=== PATIENT | male | born 1980 | race Caucasian/White ===

== ENCOUNTER 2018-04-04 12:13 | Emergency (ER) | payer SELFPAY ==
[2018-04-04] MEDS ORDERED: SODIUM CHLORIDE 0.9% 1000 ML INFUS.BAG IV ONE (12:17)
[2018-04-04] MEDS ORDERED: MECLIZINE HCL 25 MG TABLET (FP) PO ONE (12:17)
[2018-04-04 12:18] VITALS: TEMP 98.4; BMI 34.1
[2018-04-04] MEDS ORDERED: ONDANSETRON 4 MG/2 ML VIAL IVPUSH ONE (12:18)
--- NOTE | 2018-04-04 12:29 | PDOC ---
History of Present Illness - General Chief Complaint: Lightheaded Stated Complaint: DIZZINESS Time Seen by Provider: 04/04/18 12:24 History Source: Patient Exam Limitations: No Limitations - History of Present Illness Initial Comments: 04/04/18 12:25 37-year-old male no past medical history here today complaining of 10 days of dizziness and vertigo like symptoms. Patient states prior to the new year he had symptoms of a cold cough and nasal congestion. Denies any prior history of vertigo. Over the last 10 days he has had intermittent episodes of spinning sensation usually worse with turning corners or rolling over in bed. Symptoms do resolve today he had recurrent symptoms on awakening from sleep he did have associated nausea and vomiting 1. Denies fevers chills no chest pain no abdominal pain no focal weakness or changes to vision or speech. Denies any tinnitus or diarrhea Past History - Past Medical History Allergies/Adverse Reactions: Allergies Allergy/AdvReac Type Severity Reaction Status Date / Time No Known Allergies Allergy Verified 04/04/18 12:14 Home Medications: Ambulatory Orders Diazepam [Valium] 2 mg PO TID PRN #15 tablet MDD 3 04/04/18 Meclizine HCl 25 mg PO Q8H PRN #20 tablet 04/04/18 Ondansetron [Ondansetron Odt] 8 mg PO TID PRN #20 tab.rapdis 04/04/18 COPD: No Other medical history: Pt denies - Immunization History Immunization Up to Date: No - Suicide/Smoking/Psychosocial Hx Smoking History: Never smoked Have you smoked in the past 12 months: No Information on smoking cessation initiated: No Hx Alcohol Use: No Drug/Substance Use Hx: No Review of Systems - Review of Systems Constitutional: No: Chills, Fever, Weakness HEENTM: No: Blurred Vision, Hearing Loss, Difficulty Swallowing Respiratory: Yes: Cough. No: Orthopnea, Shortness of Breath Cardiac (ROS): No: Chest Pain ABD/GI: Yes: Nausea, Vomiting : No: Burning, Dysuria Neurological: Yes: Dizziness All Other Systems: Reviewed and Negative *Physical Exam - Vital Signs Last Vital Signs Temp Pulse Resp BP Pulse Ox 98.4 F 72 18 127/83 98 04/04/18 12:15 04/04/18 12:15 04/04/18 12:15 04/04/18 12:15 04/04/18 12:15 - Physical Exam Comments: 04/04/18 12:26 Patient is awake alert no acute distress head is atraumatic lungs are clear bilaterally heart is regular without any murmurs rubs or gallops abdomen is soft nontender neurologically the patient has 5 out of 5 all 4 extremities strength cranial nerves II through XII are intact cerebellar exam: Finger to nose is normal gait is steady normal Romberg is negative alternating hand movements is normal [id number] normal positive [place] to the left horizontal nystagmus skin is warm and dry no rash Moderate Sedation - Procedure Monitoring Vital Signs: Procedure Monitoring Vital Signs Temperature 98.4 F 04/04/18 12:15 Pulse Rate 72 04/04/18 12:15 Respiratory Rate 18 04/04/18 12:15 Blood Pressure 127/83 04/04/18 12:15 O2 Sat by Pulse Oximetry (%) 98 04/04/18 12:15 ED Treatment Course - LABORATORY CBC & Chemistry Diagram: 04/04/18 12:30 04/04/18 12:30 - RADIOLOGY Radiology Studies Ordered: Category Date Time Status CHEST PA & LAT [RAD] Stat Radiology 04/04/18 12:18 Ordered Medical Decision Making - Medical Decision Making 04/04/18 12:28 Differential diagnosis likely benign positional vertigo due to patient's persistent cough pneumonia or other infection is considered, lecture that abnormality, anemia, dehydration. Plan CBC CMP chest x-ray IV hydration meclizine and Zofran for his vertigo reassess patient has a normal cerebellar exam at this point neuro imaging is not necessary 04/04/18 15:12 pt labs normal. feels better after valium, ct head obtained due to length of sxs negative. will give outpt referral for nuerology and ENT. *DC/Admit/Observation/Transfer Diagnosis at time of Disposition: Vertigo - Discharge Dispostion Disposition: HOME Condition at time of disposition: Improved Decision to Admit order: No - Prescriptions Prescriptions: Diazepam [Valium] 2 mg PO TID PRN #15 tablet MDD 3 PRN Reason: Vertigo Meclizine HCl 25 mg PO Q8H PRN #20 tablet PRN Reason: Vertigo Ondansetron [Ondansetron Odt] 8 mg PO TID PRN #20 tab.rapdis PRN Reason: Nausea - Referrals Referrals: Mayur De La Rosa MD [Staff Physician] - Checo Thakur MD [Staff Physician] - - Patient Instructions Printed Discharge Instructions: Benign Paroxysmal Positional Vertigo Additional Instructions: you can take meclizine 25 mg every 8 hrs as needed for vertigo or dizziness. you can also take valium 2 mg every 8 hrs as needed for vertigo or dizziness. do not mix with alcohol or drive after taking medication as it can make you drowsy. you should follow up with [facility] De La Rosa. call to schedule see referral information for phone number. you can also follow up with dr Noreen thakur, nuerologist see referral information call to schedule. - Post Discharge Activity
[2018-04-04] MEDS ORDERED: ONDANSETRON 4 MG/2 ML VIAL ONE (12:33)
[2018-04-04] MEDS ORDERED: MECLIZINE HCL 25 MG TABLET (FP) ONE (12:33)
[2018-04-04 12:38] LABS: EOS % 0.9 % (0-4.5); HEMATOCRIT 46.4 % (35.4-49); HEMOGLOBIN 15.2 GM/dl (11.7-16.9); LYMPH % 30.1 % (8-40); MCH 29.1 pg (25.7-33.7); MCHC 32.8 g/dl (32.0-35.9); MEAN CELL VOLUME 88.8 fl (80-96); MEAN PLT VOLUME 7.5 fl (7.5-11.1); MONO % 5.4 % (3.8-10.2); NEUT % 62.6 % (42.8-82.8); PLATELET COUNT 350 K/MM3 (134-434); RBC 5.23 M/mm3 (4.00-5.60); RDW 13.7 % (11.9-15.9); WHITE BLOOD COUNT 7.2 K/mm3 (4.0-10.8)
[2018-04-04 12:55] LABS: ALBUMIN 4.1 g/dl (3.5-5.0); ALK PHOS 129 U/L (32-92); ANION GAP 7 MMOL/L (8-16); BILIRUBIN,TOTAL 0.6 mg/dl (0.2-1.0); BLOOD UREA NITROGEN 19 mg/dl (7-18); CALCIUM 9.1 mg/dl (8.4-10.2); CHLORIDE 103 mmol/L (98-107); CO2 26 mmol/L (22-28); CREATININE 0.9 mg/dl (0.6-1.3); GLUCOSE,RANDOM 113 mg/dl (74-106); POTASSIUM 4.1 mmol/L (3.5-5.1); SGOT/AST 28 U/L (10-42); SGPT/ALT 61 U/L (10-40); SODIUM 136 mmol/L (136-145); TOT PROT 7.3 g/dl (6.4-8.3)
[2018-04-04] MEDS ORDERED: METOCLOPRAMIDE HCL INJECTION 10 MG/2 ML VIAL IVPUSH ONE (13:00)
[2018-04-04] MEDS ORDERED: METOCLOPRAMIDE HCL INJECTION 10 MG/2 ML VIAL ONE (13:11)
[2018-04-04] MEDS ORDERED: diazePAM 5 MG TABLET PO ONE (13:20)
[2018-04-04] MEDS ORDERED: diazePAM 5 MG TABLET ONE (13:26)
[2018-04-04 15:36] VITALS: BP 105/71; PULSE 65
== END 2018-04-04 15:36 | disposition home or self-care (01) ==
LOC: FER 12:13
PROC: 3E033GC Introduction of Other Therapeutic Substance into Peripheral Vein, Percutaneous Approach (ICD-10-PCS; principal; 2018-04-04)
PROC: 3E0337Z Introduction of Electrolytic and Water Balance Substance into Peripheral Vein, Percutaneous Approach (ICD-10-PCS; 2018-04-04)
DX: R42 Dizziness and giddiness (principal)
CPT/HCPCS: 36415; 70450-TC; 71046-TC-FY; 80053; 85025; 99284-25; J7030